=== PATIENT | female | born 1960 | race Caucasian/White ===

== ENCOUNTER 2018-05-07 18:51 | Inpatient (IN) | payer MEDICAID ==
[~2018-05-07] VITALS: Ht 162.6 cm; Wt 73.5 kg
[2018-05-07 19:00] VITALS: BP_SYST 158
--- NOTE | 2018-05-07 19:22 | NUR ---
Note claudette in EDM - 05/07/18 at 1928 by [email or web address] Patient is in complaining of having a heavy menses for the past 13 days. She states that she has weakness due to the heavy bleeding for the almost 2 weeks. Patient denies n/v/d/f. NKDA. No other complaints/injuries noted Will cont. to monitor.
--- NOTE | 2018-05-07 19:22 | NUR ---
Patient is in complaining of having a heavy menses for the past 13 days. She states that she has weakness due to the heavy bleeding for the almost 2 weeks. Patient says she has body aches 6/10 and her R side of her face feels heavy. Patient denies n/v/d/f. NKDA. No other complaints/injuries noted Will cont. to monitor.
[2018-05-07] MEDS ORDERED: NACL 0.9% 1,000 ML IV ONE (19:45)
--- NOTE | 2018-05-07 19:45 | NUR ---
ER Dr. Spivey at bedside examining patient.
[2018-05-07 19:59] LABS: CALCIUM 8.2 mg/dL (8.4-11.0)
[2018-05-07 20:00] LABS: BASOPHILS % (AUTO) 0.4 % (0.0-2.0); CREATININE 0.55 mg/dL (0.55-1.30); EOSINOPHILS # (AUTO) 0.3 K/uL (0.0-0.4); EOSINOPHILS % (AUTO) 5.2 % (0.0-4.0); LYMPHOCYTES # (AUTO) 1.5 K/uL (1.0-5.5); LYMPHOCYTES % (AUTO) 25.9 % (20.5-51.5); MEAN CORPUSCULAR HEMOGLOBIN 29 pg (27-31); MEAN CORPUSCULAR HGB CONC 33 % (32-36); MEAN CORPUSCULAR VOLUME 87 fL (79.0-98.0); MONOCYTES # (AUTO) 0.4 K/uL (0.0-1.0); MONOCYTES % (AUTO) 7.4 % (1.7-9.3); NEUTROPHILS # (AUTO) 3.5 K/uL (1.8-7.7); NEUTROPHILS % (AUTO) 61.1 % (40.0-70.0); PLATELET COUNT (AUTO) 336 K/uL (130-430); RED CELL DISTRIBUTION WIDTH 16.4 % (9.0-15.0); WHITE BLOOD COUNT (AUTO) 5.7 K/uL (4.8-10.8)
[2018-05-07 20:04] LABS: INR 0.9 (0.8-1.2); PROTHROMBIN TIME 9.3 SECS (9.5-12.5); TOTAL BILIRUBIN 0.2 mg/dL (0.0-1.0)
[2018-05-07 20:05] LABS: HEMOGLOBIN 6.6 g/dL (12.0-16.0)
[2018-05-07] MEDS ORDERED: MORPHINE 2 MG/ML INJ. SYRINGE IVP ONE ×2 (21:00→22:30)
--- NOTE | 2018-05-07 21:07 | NUR ---
Patient medicated with morphine IVP and fluids per MD order. Patient tolerated well. Will cont. to monitor.
--- NOTE | 2018-05-07 21:30 | NUR ---
Patient states that she is having lower back pain, ER MD Dr. Spivey notified. Fluids slowed down per MD order.
[2018-05-07] MEDS ORDERED: [UNRECOGNIZED DRUG - OTHER] (21:48)
[2018-05-07] MEDS ORDERED: GABA-531 PO (21:48)
[2018-05-07] MEDS ORDERED: PROG200C15 PO (21:48)
--- NOTE | 2018-05-07 22:57 | NUR ---
Patient will be admitted to care of Dr. Perez. Admitted to Med Surg unit. Will go to room 125A. Belongings list completed. Summary report printed. Report will be given at bedside.
[2018-05-07] MEDS ORDERED: ONDANSETRON HCL 4 MG/2 ML VIAL IVP PRN (23:15)
[2018-05-07] MEDS ORDERED: ACETAMINOPHEN 325 MG TABLET PO PRN (23:15)
--- NOTE | 2018-05-07 23:16 | NUR ---
Transfer to [facility]. IV present no sign or symptom of infiltration.
--- NOTE | 2018-05-07 23:20 | NUR ---
PHYSICAL ASSESSMENT DONE. EXPLAIN BLOOD TX PROCEDURE SINCE HER IST TIME. REASSURED HER WILL BE MONITORING AND STAY WITH HER IN IST 1/2 HR AND THEIR AFTER .TOLD HER S/S OF REACTIONS . AND CALL IMMEDIATELY FOR TREATMENTS WITH UNDERSTANDING. AT BEDSIDE.IV FLUIDS FROM ER INFUSING WELL. BED IN LOW POSITION FOR SAFETY.DENIES PAIN NOR SOB THIS TIME.
[2018-05-07 23:23] VITALS: BP_SYST 108
--- NOTE | 2018-05-07 23:23 | NUR ---
ADMISSION NOTE Received patient from ER via marcus, received report from KUSUM QUINTANILLA. Patient admitted with diagnosis of ANEMIA. Patient oriented to hospital routine, call light, toileting and safety-patient verbalized understanding.
--- NOTE | 2018-05-08 00:20 | NUR ---
BLOOD TRANSFUSION: IST UNIT OF PRBC CMV NEGATIVE INITIATED AFTER VERIFYING ORDERS ,TX CONSENT ,CHECK VITAL SIGNS ,2 RNS CHECK PRODUCTS WITH PATIENT FULL NAME ,MAR # DATE OF ,PT. STATED NAME, .ALERT ORIENTED.STARTED AT 100ML/HR. EDUCATED PATIENT ON SIGNS AND SYMPTOMS OF UNTOWARD REACTIONS AND TO CALL RIGHT AWAY FOR IMMEDIATE TREATMENTS WITH UNDERSTANDING. IV SITE TO LEFT AC WITH GOOD BLOOD RETURN. STAYED WITH PATIENT FOR 15MIN, VITAL SIGNS TAKEN,NO S/S OF REACTIONS ,CONTINUE TO STAY WITH PATIENT FOR ANOTHER 1/2 HR.VITAL SIGNS TAKEN,NO REACTIONS. THEM INCREASED RATE TO 110ML/HR. NO REACTIONS .
--- NOTE | 2018-05-08 01:20 | NUR ---
RATE INCREASED TO 115ML/HR. SITE CLEAR, DENIES S/S OF REACTIONS.
--- NOTE | 2018-05-08 02:10 | NUR ---
VOID: ASSISTED TO BATHROOM VOID WITH STEADY GAIT. DENIES DIZZINESS.EXCEPT FOR TOLERABLE LOW BACK PAIN WHEN BACKTO BED. URINE REMAINS BLOODY DUE TO MONTHLY PERIODS.
--- NOTE | 2018-05-08 02:15 | NUR ---
BLOOD TX RATE INCREASED TO 120ML/HR. NOS/S OF REACTIONS.
--- NOTE | 2018-05-08 03:10 | NUR ---
BLOOD TX COMPLETED. NO UNTOWARD REACTION PRESENTED. VITAL SIGNS TAKEN STABLE.IV SITE CLEAR.
--- NOTE | 2018-05-08 03:25 | NUR ---
CALLED BLOOD BANK TECH BAL ,BLOOD NOT READY STILL CROSS MATCHING.
[2018-05-08 04:00] VITALS: BP_SYST 127
--- NOTE | 2018-05-08 04:00 | NUR ---
CALLED BAL WEATHERS TECH .PROCESSING DONE BUT CAN NOT ENTER PATIENT AND PRODUCT INTO COMPUTER. SAID CAN BE BEAM RACKER.
--- NOTE | 2018-05-08 04:15 | NUR ---
INFORMED AS400 ANALYSTKUSUM COOPER ABOUT [facility] TECH UNABLE TO ENTER PRODUCT AND PT INTO COMPUTER. NOT SAFE. CALLED BAL BACK AND TOLD HIM NOT SAFE SO HAS TO ASK HELP FROM HIS RUBBER GOODS INSPECTOR TESTER, SAID YES TRY TO CALL REDDY.
--- NOTE | 2018-05-08 04:55 | NUR ---
CALLED AGAIN BAL IF CALLED FOR HELP YES AND HIS HIS BOSS SAID REDDY ,SAID CAN BE ISSUED, WILL FIX DURING THE DAY. INFORMED HYDROGENATION STILL OPERATOR SAID CAN NOT PICK IT UP ,NOT SAFE. INFORMED ANOTHER CN MOHIT SAID NOT SAFE ,CN INFORMED NSG. ROMEL CAMARGO SAID DO NOT GET IT UNTIL ITS PROPERLY COMPUTER ENTERED.
--- NOTE | 2018-05-08 04:55 | NUR ---
ASSISTED TO BATHROOM TO VOID. SMALL BLEED INTO PAD. NO NEED TO CHANGE.
[2018-05-08] MEDS: NACL 0.9% 1,000 ML IV SCH ×2 (05:51→14:14)
--- NOTE | 2018-05-08 06:45 | NUR ---
LAST CALL TO BLOOD BANK SPOKE TO BAL SAID COMPUTER ENTERING OF DATA FIXED BY AM STAFF THERAPIST BLOOD PRODUCT IS READY TO BE LOGISTICS OFFICER.VITAL SIGNS TAKEN FIRST. TEMP 98.8 ORALLY,HR 81 BP 124/76 RR 18
--- NOTE | 2018-05-08 07:00 | NUR ---
2ND UNIT OF PRBC CMV NEG, STARTED AT 110ML/HR AFTER 2 RNS CHECKED PRODUCTS WITH PT NAME RICHARD HESS #,
[2018-05-08 07:20] VITALS: BP_SYST 131
--- NOTE | 2018-05-08 07:20 | NUR ---
CLOSING: REPORT TO AM RN FOR FURTHER CARE.NO ACUTE CARDIOPULMONARY DISTRESS .HAS TOLERABLE LOW BACK CHRONIC PAIN. LESS VAGINAL BLEED. NO BLOOD REACTIONS NOTED FROM IST UNIT. VITAL SIGNS STABLE.
[2018-05-08] MEDS ORDERED: PANTOPRAZOLE SODIUM 40 MG TAB PO SCH (07:30)
--- NOTE | 2018-05-08 08:35 | NUR ---
pt c/o little soreness/pain on her iv site as she is receiving blood. checked patency and blood return. it is patent and gives very good blood return. we will monitor pt.
[2018-05-08 11:35] VITALS: BP_SYST 126
[2018-05-08] MEDS ORDERED: COMMUNICATION ORDER XX ONE (12:15)
[2018-05-08] MEDS ORDERED: PROGESTERONE 200 MG PO SCH (12:15)
[2018-05-08] MEDS ORDERED: PROG200C15 PO (13:17)
--- NOTE | 2018-05-08 13:42 | NUR ---
PT IN BED, FAMILY AT BEDSIDE, NO C/O SOB, NO RESP DISTRESS. NO C/O OF NEW OR INCREASED BACK PAIN. WILL CONT TO MONITOR.
--- NOTE | 2018-05-08 14:00 | NUR ---
transfusion of 3rd unit prbc completed. pt has no s/s of blood transfusion reaction. no c/o itching or back pain. no swelling noted. will cont to monitor.
[2018-05-08 15:14] LABS: BASOPHILS % (AUTO) 0.6 % (0.0-2.0); EOSINOPHILS # (AUTO) 0.3 K/uL (0.0-0.4); EOSINOPHILS % (AUTO) 4.4 % (0.0-4.0); HEMATOCRIT 29.8 % (36-48); HEMOGLOBIN 9.9 g/dL (12.0-16.0); LYMPHOCYTES # (AUTO) 1.3 K/uL (1.0-5.5); LYMPHOCYTES % (AUTO) 21.1 % (20.5-51.5); MEAN CORPUSCULAR HEMOGLOBIN 29 pg (27-31); MEAN CORPUSCULAR HGB CONC 33 % (32-36); MEAN CORPUSCULAR VOLUME 86 fL (79.0-98.0); MONOCYTES # (AUTO) 0.4 K/uL (0.0-1.0); NEUTROPHILS # (AUTO) 4.3 K/uL (1.8-7.7); NEUTROPHILS % (AUTO) 67.9 % (40.0-70.0); PLATELET COUNT (AUTO) 280 K/uL (130-430); RED BLOOD CELL COUNT(AUTO) 3.46 MIL/uL (4.2-6.2); RED CELL DISTRIBUTION WIDTH 14.4 % (9.0-15.0); WHITE BLOOD COUNT (AUTO) 6.3 K/uL (4.8-10.8)
[2018-05-08 15:34] LABS: ALBUMIN 2.8 g/dL (3.4-4.8); CALCIUM 7.8 mg/dL (8.4-11.0); CREATININE 0.75 mg/dL (0.55-1.30); POTASSIUM 3.4 mmol/L (3.5-5.1); TOTAL BILIRUBIN 0.3 mg/dL (0.0-1.0)
[2018-05-08 16:00] VITALS: BP_SYST 133
[2018-05-08 16:25] VITALS: BP_SYST 118
--- NOTE | 2018-05-08 17:00 | NUR ---
D/C Patient Patient given medication reconciliation form and D/C instructions. Exit Care provided. Patient verbalized understanding. MD discussed with patient the results and treatment provided. Ambulatory with steady gait for discharge to home. Patient in stable condition, ID band removed. IV catheter removed, intact and dressing applied, no active bleeding. Rx of given. Patient educated on pain management and to watch out for other post transfusion reactions. Enccouraged to call pcp and obgy for appoinment with in a week and also to get order for cbc and chem. All belongings sent with patient.
== END 2018-05-08 17:03 | disposition home or self-care (01) | DRG 532 ==
LOC: SED 18:51 → SMU 23:01
PROVIDERS: ADMIT Internal Medicine; ATTEND Internal Medicine
PROC: 30233N1 Transfusion of Nonautologous Red Blood Cells into Peripheral Vein, Percutaneous Approach (ICD-10-PCS; principal; 2018-05-08)
DX: N92.0 Excessive and frequent menstruation with regular cycle (principal); G62.9 Polyneuropathy, unspecified; D64.9 Anemia, unspecified; G51.0 Bell's palsy
CPT/HCPCS: 36415; 76856-TC; 80053; 85025; 85610-TC; 85730-TC; 86886; 86900; 86901; 86920; 90656; 96361; 96374; 96376; 99285; J2270; J2405; J7030; J7050; P9021

== ENCOUNTER 2019-01-24 09:41 | Emergency (ER) | payer MEDICAID ==
[~2019-01-24] VITALS: Ht 162.6 cm; Wt 69.4 kg
[2019-01-24 09:41] VITALS: BP_SYST 143
[~2019-01-24 09:41] MED LIST: GABA-531 PO; PROG200C15 PO; [UNRECOGNIZED DRUG - OTHER]
--- NOTE | 2019-01-24 09:41 | NUR ---
BROUGHT BACK TO BED #8 AND TRIAGED. REPORT GIVEN TO QYUNH
--- NOTE | 2019-01-24 09:45 | NUR ---
Pt c/o headache and back pain.
--- NOTE | 2019-01-24 10:00 | NUR ---
ER Danyell Tamayo at bedside examining patient.
[2019-01-24] MEDS ORDERED: KETOROLAC TROMETHAMINE 60 MG/2 ML VIAL IM ONE (10:15)
[2019-01-24] MEDS ORDERED: ONDANSETRON 4 MG ODT TAB PO ONE (10:15)
[2019-01-24 10:49] LABS: BASOPHILS % (AUTO) 0.7 % (0.0-2.0); EOSINOPHILS # (AUTO) 0.3 K/uL (0.0-0.4); EOSINOPHILS % (AUTO) 5.3 % (0.0-4.0); HEMATOCRIT 34.8 % (36-48); HEMOGLOBIN 11.4 g/dL (12.0-16.0); LYMPHOCYTES % (AUTO) 21.9 % (20.5-51.5); MEAN CORPUSCULAR HEMOGLOBIN 27 pg (27-31); MEAN CORPUSCULAR HGB CONC 33 % (32-36); MEAN CORPUSCULAR VOLUME 81 fL (79.0-98.0); MONOCYTES # (AUTO) 0.3 K/uL (0.0-1.0); MONOCYTES % (AUTO) 6.4 % (1.7-9.3); NEUTROPHILS # (AUTO) 3.1 K/uL (1.8-7.7); NEUTROPHILS % (AUTO) 65.7 % (40.0-70.0); PLATELET COUNT (AUTO) 241 K/uL (130-430); RED CELL DISTRIBUTION WIDTH 22.4 % (9.0-15.0); WHITE BLOOD COUNT (AUTO) 4.8 K/uL (4.8-10.8)
--- NOTE | 2019-01-24 11:09 | NUR ---
Pt reports pain resolving.
[2019-01-24 11:16] LABS: CALCIUM 8.8 mg/dL (8.4-11.0); CREATININE 0.57 mg/dL (0.55-1.30); POTASSIUM 3.5 mmol/L (3.5-5.1)
[2019-01-24 11:20] LABS: INR 0.9 (0.8-1.2); PROTHROMBIN TIME 9.6 SECS (9.5-12.5)
[2019-01-24 11:21] LABS: ALBUMIN 3.7 g/dL (3.4-4.8); TOTAL BILIRUBIN 0.3 mg/dL (0.0-1.0)
[2019-01-24 12:19] VITALS: BP_SYST 141
--- NOTE | 2019-01-24 12:20 | NUR ---
Patient given written and verbal discharge instructions and verbalizes understanding. ER MD discussed with patient the results and treatment provided. Patient in stable condition. ID arm band removed. Rx of NORCO, IBUPROFEN, ZOFRAN given. Patient educated on pain management and to follow up with PMD. Pain Scale 0/10. Opportunity for questions provided and answered. Medication side effect fact sheet provided.
== END 2019-01-24 12:20 | disposition home or self-care (01) ==
LOC: SED 09:41
DX: R51 Headache (principal); J45.909 Unspecified asthma, uncomplicated; I10 Essential (primary) hypertension; F41.9 Anxiety disorder, unspecified; Z88.1 Allergy status to other antibiotic agents; Z79.899 Other long term (current) drug therapy
CPT/HCPCS: 36415; 70450; 71045; 80053; 83880; 84484; 84703; 85025; 85610; 85730; 93005; 96372; 99284; J1885; Q0162

== ENCOUNTER 2022-02-08 03:56 | Emergency (ER) | payer MEDICAID ==
[~2022-02-08] VITALS: Ht 162.6 cm; Wt 76.2 kg
[2022-02-08 04:00] VITALS: BP_SYST 184
--- NOTE | 2022-02-08 04:00 | NUR ---
Placed in room 7 . Placed on hazmat technician, blood pressure machine and pulse oximeter. To gown for exam. Side rails up.
--- NOTE | 2022-02-08 04:03 | NUR ---
ER at bedside examining patient.
[2022-02-08] MEDS ORDERED: ASPIRIN 81 MG TAB.CHEW PO ONE (04:15)
--- NOTE | 2022-02-08 04:19 | NUR ---
Chest xray performed at the bedside.
[2022-02-08 04:39] LABS: WHITE BLOOD COUNT (AUTO) 5.9 K/uL (4.8-10.8)
--- NOTE | 2022-02-08 04:44 | NUR ---
Medicated pt as ordered by Dr Hughes.Pt tolerated well.will cont to monitor.
[2022-02-08 04:45] LABS: BASOPHILS % (AUTO) 0.4 % (0.0-2.0); EOSINOPHILS # (AUTO) 0.6 K/uL (0.0-0.4); HEMATOCRIT 38.1 % (36-48); HEMOGLOBIN 13.2 g/dL (12.0-16.0); LYMPHOCYTES # (AUTO) 1.7 K/uL (1.0-5.5); MEAN CORPUSCULAR HEMOGLOBIN 30 pg (27-31); MEAN CORPUSCULAR HGB CONC 35 % (32-36); MEAN CORPUSCULAR VOLUME 88 fL (79.0-98.0); MONOCYTES # (AUTO) 0.5 K/uL (0.0-1.0); MONOCYTES % (AUTO) 8.5 % (1.7-9.3); NEUTROPHILS % (AUTO) 51.1 % (40.0-70.0); PLATELET COUNT (AUTO) 259 K/uL (130-430); RED BLOOD CELL COUNT(AUTO) 4.32 MIL/uL (4.2-6.2); RED CELL DISTRIBUTION WIDTH 12.5 % (9.0-15.0)
[2022-02-08] MEDS ORDERED: MORPHINE 4 MG INJ. 4 MG/ML VIAL IVP ONE (04:45)
[2022-02-08 04:49] LABS: ANION GAP 9 (5-15); CALCIUM 9.2 mg/dL (8.4-11.0); CHLORIDE 104 mmol/L (98-107); CREATININE 0.77 mg/dL (0.55-1.30); GLUCOSE 108 mg/dL (70-99); POTASSIUM 3.4 mmol/L (3.5-5.1); SODIUM SERUM 139 mmol/L (136-145); UREA NITROGEN, BLOOD 21 mg/dL (8-21)
--- NOTE | 2022-02-08 04:56 | NUR ---
States pain decreased to 4/10.Will cont to monitor.
[2022-02-08 04:57] LABS: ALANINE AMINOTRANSFERASE 124 U/L (12-78); ALBUMIN 3.8 g/dL (3.4-4.8); ASPARTATE AMINOTRANSFERASE 35 U/L (10-37); TOTAL BILIRUBIN 0.5 mg/dL (0.0-1.0)
[2022-02-08 04:58] LABS: GFR AFRICAN AMERICAN 98 mL/min (>90)
[2022-02-08] MEDS ORDERED: KETOROLAC TROMETHAMINE 60 MG/2 ML VIAL IM ONE (05:15)
[2022-02-08] MEDS ORDERED: IOHEXOL 350 mgI/mL, 150 ML INFUS..BTL IV ONE (06:30)
--- NOTE | 2022-02-08 06:51 | NUR ---
Pt taken to CT awake via wheelchair.
--- NOTE | 2022-02-08 06:57 | NUR ---
Pt back to ER from CT via wheelchair.
--- NOTE | 2022-02-08 07:10 | NUR ---
Report given to Robert NOE(reg)
[2022-02-08] MEDS ORDERED: MAG HYDROX/AL HYDROX/SIMETH 30 ML, LIDOCAINE VISCOUS 2% 15ML (PO) 15 ML, DICYCLOMINE HC... PO ONE ×3 (07:15)
[2022-02-08 08:04] LABS: BILIRUBIN,URINE NEGATIVE (NEGATIVE); BLOOD, URINE NEGATIVE (NEGATIVE); CLARITY/URINE CLEAR (CLEAR); COLOR,URINE YELLOW (YELLOW); GLUCOSE,URINE NEGATIVE (NEGATIVE); KETONES,URINE NEGATIVE (NEGATIVE); LEUKOCYTE ESTERASE ,URINE NEGATIVE (NEGATIVE); NITRITE, URINE NEGATIVE (NEGATIVE); PH,URINE 5.5 (5.0-8.0); PROTEIN URINE NEGATIVE (NEGATIVE); UROBILINOGEN,URINE 0.2 (0.2-1.0)
--- NOTE | 2022-02-08 08:09 | NUR ---
bleeding controlled, cannula intact, all questions answere,a/ox4 vss aware of dc, iv removed
--- NOTE | 2022-02-08 08:15 | NUR ---
BP 170/97, Pt notes has not had her morning BP medicine. Pt states GI cocktail was effective, "I feel much better than when I came in".
[2022-02-08] MEDS ORDERED: TRAM50TA PO (08:28)
[2022-02-08] MEDS ORDERED: ANT30 PO (08:28)
[2022-02-08] MEDS ORDERED: PRO40 PO (08:28)
[2022-02-08] MEDS ORDERED: VALSARTAN 80 MG TABLET (DIOVAN) PO ONE (08:30)
[2022-02-08] MEDS ORDERED: LOSARTAN POTASSIUM 50 MG TABLET (COZAAR) PO ONE (08:45)
--- NOTE | 2022-02-08 09:01 | NUR ---
Patient given written and verbal discharge instructions and verbalizes understanding. ER MD discussed with patient the results and treatment provided. Patient in stable condition. ID arm band removed. IV catheter removed intact and dressing applied, no active bleeding. Rx of Mylanta, Protonix ,Tramadol given. Patient educated on pain management and to follow up with PMD. Pain Scale 0/10 Opportunity for questions provided and answered. Medication side effect fact sheet provided.
[2022-02-08 09:05] VITALS: BP_SYST 144
== END 2022-02-08 09:01 | disposition home or self-care (01) ==
LOC: SED 03:56
DX: K29.60 Other gastritis without bleeding (principal); R07.89 Other chest pain; R10.12 Left upper quadrant pain; I10 Essential (primary) hypertension; Z88.8 Allergy status to other drugs, medicaments and biological substances; Z79.899 Other long term (current) drug therapy
CPT/HCPCS: 99285; 71275; 96374; 71045; 80053; 85025; 85379; 84484; 36415; 93005; 74177; 81003; 76376; J2001; J1885; J2270; Q9967

== ENCOUNTER 2022-05-29 18:41 | Emergency (ER) | payer MEDICAID ==
[~2022-05-29] VITALS: Ht 162.6 cm; Wt 71.7 kg
[~2022-05-29 18:41] MED LIST changes: +ANT30 PO; +PRO40 PO; -PROG200C15 PO; +TRAM50TA PO; +[UNRECOGNIZED DRUG - CODE] PO
[2022-05-29 19:20] VITALS: BP_SYST 149
--- NOTE | 2022-05-29 19:30 | NUR ---
Patient to ER bed 5 to gown for evaluation. Side rails up. Report given to Charlene NOE.
[2022-05-29] MEDS ORDERED: NACL 0.9% 1,000 ML IV ONE (20:00)
[2022-05-29] MEDS ORDERED: MORPHINE 4 MG INJ. 4 MG/ML VIAL IVP ONE (20:00)
[2022-05-29] MEDS ORDERED: PROCHLORPERAZINE EDISYLATE 10 MG/2 ML VIAL IVP ONE (20:00)
[2022-05-29 20:03] LABS: BILIRUBIN,URINE NEGATIVE (NEGATIVE); CLARITY/URINE CLEAR (CLEAR); GLUCOSE,URINE NEGATIVE (NEGATIVE); KETONES,URINE TRACE (NEGATIVE); LEUKOCYTE ESTERASE ,URINE NEGATIVE (NEGATIVE); NITRITE, URINE NEGATIVE (NEGATIVE); PH,URINE 6.5 (5.0-8.0); PROTEIN URINE TRACE (NEGATIVE)
--- NOTE | 2022-05-29 20:06 | NUR ---
PT BIBS W C/O OF LOWER ABD PAIN W NAUSEA X 1 DAY. PT ENDORSES PAIN WITH URINATION. DENIES V/D, SOB, CP AND DIZZINESS. PT AT BEDSIDE PMH: HTN, ASTHMA
[2022-05-29 20:15] LABS: BLOOD, URINE TRACE (NEGATIVE); COLOR,URINE AMBER (YELLOW)
[2022-05-29 20:16] LABS: CALCIUM 9.2 mg/dL (8.4-11.0); CREATININE 0.63 mg/dL (0.55-1.30); MEAN CORPUSCULAR HGB CONC 35 % (32-36); MONOCYTES # (AUTO) 0.4 K/uL (0.0-1.0)
[2022-05-29 20:17] LABS: BACTERIA,URINE FEW /HPF (None Seen); MUCUS,URINE None Seen /LPF (None Seen); RBC,URINE 0-3 /HPF (0-3); WBC,URINE 0-3 /HPF (0-3)
[2022-05-29 20:22] LABS: TOTAL BILIRUBIN 0.4 mg/dL (0.0-1.0)
[2022-05-29 20:26] LABS: EOSINOPHILS % (AUTO) 0.2 % (0.0-4.0); HEMATOCRIT 38.3 % (36-48); HEMOGLOBIN 13.3 g/dL (12.0-16.0); MEAN CORPUSCULAR HEMOGLOBIN 31 pg (27-31); MEAN CORPUSCULAR VOLUME 88 fL (79.0-98.0); MONOCYTES % (AUTO) 5.8 % (1.7-9.3); NEUTROPHILS % (AUTO) 79.7 % (40.0-70.0); PLATELET COUNT (AUTO) 245 K/uL (130-430); RED BLOOD CELL COUNT(AUTO) 4.37 MIL/uL (4.2-6.2); WHITE BLOOD COUNT (AUTO) 7.3 K/uL (4.8-10.8)
[2022-05-29 20:27] LABS: BASOPHILS % (AUTO) 0.3 % (0.0-2.0); NEUTROPHILS # (AUTO) 5.8 K/uL (1.8-7.7)
--- NOTE | 2022-05-29 21:41 | NUR ---
Patient resting quietly. No acute distress noted, pt reports pain 3/10. Vital signs within normal range.
[2022-05-29] MEDS ORDERED: HYOS0.1275 PO (22:23)
[2022-05-29] MEDS ORDERED: MOM PO (22:23)
[2022-05-29] MEDS ORDERED: CIPROFLOXACIN HCL 500 MG TABLET PO ONE (22:30)
[2022-05-29] MEDS ORDERED: MILK OF MAGNESIA 30 ML UDC PO ONE (22:30)
[2022-05-29 22:59] VITALS: BP_SYST 151
--- NOTE | 2022-05-29 22:59 | NUR ---
Patient given written and verbal discharge instructions and verbalizes understanding. ER MD discussed with patient the results and treatment provided. Patient in stable condition. ID arm band removed. IV catheter removed intact and dressing applied, no active bleeding. Rx of LEVSIN-SL, MILK OF MAG given. Patient educated on pain management and to follow up with PMD. Pain Scale 0/10. Opportunity for questions provided and answered. Medication side effect fact sheet provided.
== END 2022-05-29 22:59 | disposition home or self-care (01) ==
LOC: SED 18:41
DX: K59.00 Constipation, unspecified (principal); R10.32 Left lower quadrant pain; J45.909 Unspecified asthma, uncomplicated; I10 Essential (primary) hypertension; Z88.1 Allergy status to other antibiotic agents; Z79.899 Other long term (current) drug therapy
CPT/HCPCS: 99284; 96374; 96361; 96375; 80053; 81000; 83690; 85025; 36415; 74021; 81025; J0780; J2270; J7030

== ENCOUNTER 2023-05-06 08:27 | Day surgery (SDC) | payer MEDICAID ==
[~2023-05-06] VITALS: Ht 162.6 cm; Wt 74.4 kg
[~2023-05-06 08:27] MED LIST changes: +HYOS0.1275 PO; +MOM PO; +PROG200C36 PO; -[UNRECOGNIZED DRUG - CODE] PO
[2023-05-06] MEDS ORDERED: MEPERIDINE 100 MG INJ. 100 MG/ML VIAL ONE (09:04)
[2023-05-06] MEDS ORDERED: BENZOCAINE 20% 0.5mL UD SPRAY MM ONE (09:05)
[2023-05-06] MEDS ORDERED: MIDAZOLAM HCL 5 MG/5 ML VIAL ONE (09:05)
[2023-05-06 11:12] VITALS: O2SAT 99
[2023-05-06 15:50] VITALS: BP_SYST 115; PULSE 76; RESP 18
== END 2023-05-06 11:10 | disposition home or self-care (01) ==
LOC: SDS 08:27 → SMU 08:31 → SDS 11:10
PROVIDERS: ATTEND Internal Medicine
DX: R10.12 Left upper quadrant pain (principal); K29.50 Unspecified chronic gastritis without bleeding; J45.909 Unspecified asthma, uncomplicated; I10 Essential (primary) hypertension; Z88.1 Allergy status to other antibiotic agents; Z79.899 Other long term (current) drug therapy
CPT/HCPCS: 43239; 87081; 36415; 88305; 88312; 88313; 99152; G0378; J2250; J2175

== ENCOUNTER 2023-06-04 12:50 | Emergency (ER) | payer MEDICAID ==
[~2023-06-04] VITALS: Ht 162.6 cm; Wt 73.9 kg
[2023-06-04 13:07] VITALS: BP_SYST 145; PULSE 99; RESP 22; TEMP 98.3; O2SAT 98
[2023-06-04 14:14] LABS: BASOPHILS % (AUTO) 0.5 % (0.0-2.0); EOSINOPHILS # (AUTO) 0.3 K/uL (0.0-0.4); EOSINOPHILS % (AUTO) 3.8 % (0.0-4.0); HEMATOCRIT 40.6 % (36-48); HEMOGLOBIN 13.7 g/dL (12.0-16.0); LYMPHOCYTES # (AUTO) 1.2 K/uL (1.0-5.5); LYMPHOCYTES % (AUTO) 16.9 % (20.5-51.5); MEAN CORPUSCULAR HEMOGLOBIN 30 pg (27-31); MEAN CORPUSCULAR HGB CONC 34 % (32-36); MEAN CORPUSCULAR VOLUME 88 fL (79.0-98.0); MONOCYTES # (AUTO) 0.8 K/uL (0.0-1.0); NEUTROPHILS # (AUTO) 4.6 K/uL (1.8-7.7); NEUTROPHILS % (AUTO) 66.8 % (40.0-70.0); PLATELET COUNT (AUTO) 275 K/uL (130-430); RED CELL DISTRIBUTION WIDTH 12.6 % (9.0-15.0); WHITE BLOOD COUNT (AUTO) 6.9 K/uL (4.8-10.8)
[2023-06-04] MEDS ORDERED: guaiFENesin/DEXTROMETHORPHAN 10 ML UDC PO ONE (14:30)
[2023-06-04] MEDS ORDERED: BENZONATATE 100 MG CAPSULE (TESSALON) PO ONE (14:30)
[2023-06-04 14:40] LABS: ANION GAP 12 (5-15); CALCIUM 9.7 mg/dL (8.4-11.0); CARBON DIOXIDE 26 mmol/L (23-29); CHLORIDE 98 mmol/L (98-107); CREATININE 0.63 mg/dL (0.55-1.30); GFR AFRICAN AMERICAN 124 mL/min (>90); GFR NON AFRICAN-AMERICAN 102 mL/min (>90); GLUCOSE 96 mg/dL (74-106); POTASSIUM 3.7 mmol/L (3.5-5.1); SODIUM SERUM 136 mmol/L (136-145); UREA NITROGEN, BLOOD 12 mg/dL (8-21)
[2023-06-04] MEDS ORDERED: METOCLOPRAMIDE HCL 10 MG/2 ML VIAL IM ONE (14:45)
[2023-06-04] MEDS ORDERED: ONDANSETRON 4 MG ODT TAB PO ONE (14:45)
[2023-06-04 15:15] LABS: ALANINE AMINOTRANSFERASE 176 U/L (12-78); ALBUMIN 3.6 g/dL (3.4-4.8); ASPARTATE AMINOTRANSFERASE 35 U/L (10-37); TOTAL BILIRUBIN 0.4 mg/dL (0.0-1.0); TOTAL PROTEIN, SERUM 7.6 g/dL (6.4-8.3)
[2023-06-04 15:54] LABS: COVID19 ANTIGEN SOFIA FIA NEGATIVE (NEGATIVE); INFLUENZA TYPE A Negative (NEGATIVE); INFLUENZA TYPE B NEGATIVE (NEGATIVE)
[2023-06-04] MEDS ORDERED: BENZ100C92 PO (15:55)
[2023-06-04] MEDS ORDERED: IBUP-1969 PO (15:55)
[2023-06-04] MEDS ORDERED: ONDA-8 TL (16:13)
[2023-06-04 16:56] VITALS: BP_SYST 145; PULSE 99; RESP 22; TEMP 98.3; O2SAT 98
== END 2023-06-04 16:33 | disposition home or self-care (01) ==
LOC: SED 12:50
DX: B34.9 Viral infection, unspecified (principal); R05.9 Cough, unspecified; R07.81 Pleurodynia; R11.2 Nausea with vomiting, unspecified; J45.909 Unspecified asthma, uncomplicated; I10 Essential (primary) hypertension; Z88.1 Allergy status to other antibiotic agents; Z79.899 Other long term (current) drug therapy; Z20.822 Contact with and (suspected) exposure to COVID-19
CPT/HCPCS: 99284; 71045; 87426; 80053; 83880; 85025; 84484; 36415; 96372; 83605; 87804 ×2; 82397; Q0162; J2765

== ENCOUNTER 2023-12-21 07:31 | Day surgery (SDC) | payer MEDICAID ==
[~2023-12-21] VITALS: Ht 162.6 cm; Wt 70.3 kg
[~2023-12-21 07:31] MED LIST changes: +BENZ100C92 PO; +IBUP-1969 PO; +ONDA-8 TL
[2023-12-21] MEDS ORDERED: BENZOCAINE 20% 0.5mL UD SPRAY MM ONE (08:22)
[2023-12-21 09:19] VITALS: BP_SYST 157; PULSE 88; RESP 18; TEMP 97.6; O2SAT 100
== END 2023-12-21 11:35 | disposition home or self-care (01) ==
LOC: SDS 07:31 → SMU 07:37 → SDS 11:35
PROVIDERS: ATTEND Internal Medicine
DX: R10.9 Unspecified abdominal pain (principal); K29.50 Unspecified chronic gastritis without bleeding; K31.A0 Gastric intestinal metaplasia, unspecified; R10.13 Epigastric pain; I10 Essential (primary) hypertension; J45.909 Unspecified asthma, uncomplicated; D64.9 Anemia, unspecified; F41.9 Anxiety disorder, unspecified; M19.90 Unspecified osteoarthritis, unspecified site; Z90.710 Acquired absence of both cervix and uterus; Z90.49 Acquired absence of other specified parts of digestive tract; Z98.891 History of uterine scar from previous surgery; Z90.89 Acquired absence of other organs; Z88.1 Allergy status to other antibiotic agents; Z79.899 Other long term (current) drug therapy
CPT/HCPCS: 43251; 88305; 88312; 88313; 43239; 93005; G0378